=== PATIENT | male | born 1960 | race Caucasian/White ===

== ENCOUNTER 2017-11-01 22:36 | Emergency (ER) | payer OTHER ==
[~2017-11-01] VITALS: Ht 180.3 cm; Wt 99.8 kg
[2017-11-01 22:53] VITALS: BP 134/84
--- NOTE | 2017-11-02 00:37 | ED ANKLE/FOOT INJURY COMPLAINT ---
See Addendum History of Present Illness General Chief Complaint: Plantar Puncture Wound Stated Complaint: "RT PLANTAR PUNCTURED" Source: patient, family Exam Limitations: no limitations Vital Signs & Intake/Output Vital Signs & Intake/Output Vital Signs Date Time Temp Pulse Resp B/P B/P Pulse O2 O2 Flow FiO2 Mean Ox Delivery Rate 11/01 2253 98.4 75 18 134/84 98 Room Air ED Intake and Output 11/02 0000 11/01 1200 Intake Total 0 Output Total Balance 0 Intake, Oral 0 Patient 220 lb Weight Weight Reported by Patient Measurement Method Allergies Coded Allergies: No Known Drug Allergies (NKDA 11/01/17) Triage Note: PT TO ED C/O LACERATION TO SOLE OF RT FOOT S/P STEPPING ON A WIRE POT FRAME 1 [employer]. UNSURE OF LAST TETANUS. BLEEDING CONTROLLED Triage Nurses Notes Reviewed? yes Occurred: just prior to arrival Duration: hour(s): Timing: single episode today Severity: moderate Pain/Injury Location: Right: Foot. Method of Injury: laceration Modifying Factors: Worsens With: other (bleeding self resolved). Associated Symptoms: foot laceration HPI: 57 yo gentleman presents with a laceration on my right foot. "I was barefoot... stepped on a metal planter... cut the bottom of my foot." He does not believe there is a foreign body inside his foot. He is otherwise well. Past History Travel History Traveled to [place] past 21 day No Medical History Any Pertinent Medical History? see below for history Cardiovascular: hypertension Psychiatric: anxiety Surgical History Surgical History: none Psychosocial History What is your primary language Latvian Tobacco Use: Never used ETOH Use: occasional use Illicit Drug Use: denies illicit drug use Family History Hx Contributory? No Review of Systems Review of Systems Constitutional: Reports: no symptoms. EENTM: Reports: no symptoms. Respiratory: Reports: no symptoms. Cardiovascular: Reports: no symptoms. GI: Reports: no symptoms. Genitourinary: Reports: no symptoms. Musculoskeletal: Reports: no symptoms. Skin: Reports: no symptoms. Neurological/Psychological: Reports: no symptoms. Hematologic/Endocrine: Reports: no symptoms. Immunologic/Allergic: Reports: no symptoms. All Other Systems: Reviewed and Negative Physical Exam Physical Exam General Appearance: well developed/nourished, mild distress Head: atraumatic Leg/Knee/Thigh Left: normal range of motion Foot Right: 3cm laceration on plantar aspect at calcaneous. no sign of infection. ROM is normal. Progress Differential Diagnosis: laceration vs other. Plan of Care: Current Medications Sig/Jose Start time Last Medication Dose Stop Time Status Admin Cephalexin 500 MG ONCE ONE 11/02 99 UNVr (Keflex) 11/02 100 Lidocaine 20 ML ONCE ONE 11/02 99 UNVr 11/02 (Lidocaine 1%) 11/02 100 0112 Tetanus/Diphtheria 0.5 ML ONCE ONE 11/02 99 UNVr Toxoids Adsorbed 11/02 100 (Decavac) Trimethoprim/ 1 TAB ONCE ONE 11/02 99 UNVr Sulfamethoxazole 11/02 100 (Bactrim DS) Departure Departure Disposition: HOME OR SELF CARE Condition: Stable Clinical Impression Primary Impression: Laceration Referrals: Unknown (PCP/Family) Departure Forms: Customer Survey General Discharge Information Procedures Laceration/Wound Repair Laceration/Wound Repair: Wound Location: right plantar aspect Wound's Depth, Shape: linear, into muscle Wound Length (cm): 3 Wound Explored: clean, no foreign body removed Irrigated w/ Saline (ccs): 1000 Betadine Prep? Yes Anesthesia: 1% lidocaine Volume Anesthetic (ccs): 5 Wound Repaired With: sutures Suture Size/Type: 4:0, nylon Date of Last Tetanus: 11/02/17
[2017-11-02] MEDS ORDERED: BACTRIM DS TAB1 EACH PO (01:35)
[2017-11-02] MEDS ORDERED: KEFLEX500 M1 PO (01:35)
== END 2017-11-02 01:38 ==
LOC: ERH 22:36
DX: S91.311A Laceration without foreign body, right foot, initial encounter (principal); W45.8XXA Other foreign body or object entering through skin, initial encounter; Y92.9 Unspecified place or not applicable; Y93.9 Activity, unspecified
CPT/HCPCS: 90471; 90714; J2001

== ENCOUNTER 2017-11-10 19:03 | Emergency (ER) | payer OTHER ==
[~2017-11-10 19:03] MED LIST: BACTRIM DS TAB1 EACH PO; KEFLEX500 M1 PO
[2017-11-10 19:27] VITALS: BP 134/70
--- NOTE | 2017-11-10 20:10 | ED UPPER/LOWER EXTREMITY COMPL ---
History of Present Illness General Chief Complaint: Suture Removal/Wound Recheck Stated Complaint: SUTURE REMOVAL Source: patient Exam Limitations: no limitations Vital Signs & Intake/Output Vital Signs & Intake/Output Vital Signs Date Time Temp Pulse Resp B/P B/P Pulse O2 O2 Flow FiO2 Mean Ox Delivery Rate 11/107 98.0 88 18 134/70 98 Room Air Allergies Coded Allergies: No Known Drug Allergies (NKDA 11/01/17) Reconcile Medications Cephalexin (Keflex) 500 MG CAPSULE 1 CAP PO 4 TIMES/DAY INFECTION Sulfamethoxazole/Trimethoprim (Bactrim Ds Tablet) 800 MG-160 MG TABLET 1 TAB PO BID INFECION Triage Note: 57M TO ED FOR SUTURE REMOVAL TO BOTTOM OF RIGHT FOOT (PLACED 7 DAYS AGO) HAS HAD IT COVERED CONSISTENTLY AND APPEARS SLIGHTLY MACERATED AT EDGES AND MOIST. NO ERYTHEMA OR WARMTH. AFEBRILE. HAS BEEN TAKING ANTIBIOTICS PRESCRIBED Triage Nurses Notes Reviewed? yes Onset: Gradual Duration: day(s): Timing: recent history Severity: mild Pain/Injury Location: Left: Foot. Method of Injury: laceration Modifying Factors: Improves With: rest. Associated Symptoms: "It healed great" HPI: 57 yo gentleman presents for follow up of laceration on left foot. He had sutures placed one week ago. He states, "I've been taking good care of it, and it has healed great." He is otherwise well. Past History Travel History Traveled to [place] past 21 day No Medical History Any Pertinent Medical History? see below for history Cardiovascular: hypertension Psychiatric: anxiety Tetanus Vaccine: 11/02/17 Surgical History Surgical History: none Psychosocial History What is your primary language Greek Tobacco Use: Never used Family History Hx Contributory? No Review of Systems Review of Systems Constitutional: Reports: no symptoms. EENTM: Reports: no symptoms. Respiratory: Reports: no symptoms. Cardiovascular: Reports: no symptoms. Gastrointestinal/Abdominal: Reports: no symptoms. Genitourinary: Reports: no symptoms. Musculoskeletal: Reports: no symptoms. Skin: Reports: no symptoms. Neurological/Psychological: Reports: no symptoms. Hematologic/Endocrine: Reports: no symptoms. Immunological: Reports: no symptoms. All Other Systems: Reviewed and Negative Physical Exam Physical Exam General Appearance: well developed/nourished, mild distress Head: atraumatic Eyes: Bilateral: normal appearance. Leg Left: left foot with 3cm laceration, well healed, with 3 sutures intact, no discharge, no erythema, no sign of infection. Progress Differential Diagnosis: laceration Plan of Care: sutures removed, steri strips and bacitracin applied.... clean dressing... close follow up advised as needed. discussed at length Departure Departure Disposition: HOME OR SELF CARE Condition: Stable Clinical Impression Primary Impression: Visit for suture removal Secondary Impressions: Encounter for wound care Referrals: Unknown (PCP/Family) Departure Forms: Customer Survey General Discharge Information
== END 2017-11-10 20:20 ==
LOC: ERH 19:03
DX: Z48.02 Encounter for removal of sutures (principal)